=== PATIENT | male | born 1975 | race Caucasian/White ===

== ENCOUNTER → 2021-12-29 | Outpatient (CLI) | payer OTHER ==
--- NOTE | 2021-12-29 19:01 | MR ---
EXAMINATION TYPE: MR ankle RT wo con DATE OF EXAM: 12/29/2021 COMPARISON: None HISTORY: Rt ankle pain, injury, rupture of flexor Multiplanar multiecho imaging of the right ankle without contrast. Achilles tendon is intact. Plantar fascia is intact. The medial and lateral flexor tendons at the ank le appear intact. There is some subcutaneous edema in the lateral aspect of the midfoot. No evidence of fracture of the hindfoot. There is some fluid signal vertically oriented in the distal tibia on th e medial malleolus that could relate to an old injury. The collateral ligaments appear intact. There is mild edema over the medial malleolus of the ankle. IMPRESSION: There is soft tissue edema over the medial malleolus and also over the lateral mid foot. Nodular incr eased fluid signal in the medial malleolus of the distal tibia that could relate to an old injury. Th is could be old hairline fracture of the medial malleolus. No definite fracture line seen.
== END | disposition home or self-care (01) ==
LOC: RADMRIMAIN 15:01
PROVIDERS: ATTEND Podiatrist
DX: M66.371 Spontaneous rupture of flexor tendons, right ankle and foot (principal); M25.571 Pain in right ankle and joints of right foot

== ENCOUNTER 2023-04-11 08:39 | Day surgery (SDC) | payer OTHER ==
[2023-04-09 12:23] VITALS: BMI 31.5
[~2023-04-11 08:39] MED LIST: LIDOCAINE 1% (10MG/ML) FOR IV START INTRADERMA PRN
[2023-04-11] MEDS: LACTATED RINGERS 1,000 ML IV SCH ×2 (09:09→09:10)
[2023-04-11 09:13] VITALS: TEMP 97.1
[2023-04-11] MEDS ORDERED: LIDOCAINE 1% INJ 10MG/ML (20 ML MDV) ONE (09:17)
[2023-04-11] MEDS ORDERED: PROPOFOL 10 MG/ML 20 ML VIAL IV ONE (09:17)
--- NOTE | 2023-04-11 09:33 | P.PCN ---
Date of Procedure: 04/11/23 Procedure(s) Performed: BRIEF HISTORY: Patient is a 47-year-old pleasant male scheduled for an elective colonoscopy as a part of a for colon cancer/family history of colon cancer. He Was diagnosed with colon cancer at age 58. PROCEDURE PERFORMED: Colonoscopy. PREOPERATIVE DIAGNOSIS: Screening for colon cancer and family history of colon cancer. IV sedation per Anesthesia. PROCEDURE: After informed consent was obtained, the patient, was brought into the endoscopy unit. IV sedation was administered by Anesthesia under continuous monitoring. Digital rectal examination was normal. Initially the Olympus CF-160 flexible video colonoscope was then inserted in the rectum, gradually advanced into the cecum without any difficulty. Careful examination was performed as the scope was gradually being withdrawn. Ileocecal valve and the appendiceal orifice were visualized and appeared normal. Prep was excellent. Mucosa of the cecum, ascending colon, transverse colon, descending colon, sigmoid colon, and rectum appeared normal. Retroflexion was performed in the rectum and no lesions were seen. The patient tolerated the procedure well. IMPRESSION: Normal-appearing colon from rectum to cecum with no evidence of colorectal neoplasia. RECOMMENDATIONS: Findings of this examination were discussed with the patient as well as his family. He was advised to have a repeat screening colonoscopy in 5 years because of the family history of colon cancer.
[2023-04-11 09:43] VITALS: RESP 16
[2023-04-11 10:12] VITALS: BP 139/93; PULSE 62
== END 2023-04-11 10:07 | disposition home or self-care (01) ==
LOC: ORWHC2ENDO 08:39
PROVIDERS: ATTEND Internal Medicine Gastroenterology
DX: Z12.11 Encounter for screening for malignant neoplasm of colon (principal); I10 Essential (primary) hypertension; E78.5 Hyperlipidemia, unspecified; F90.9 Attention-deficit hyperactivity disorder, unspecified type; Z87.891 Personal history of nicotine dependence; Z79.899 Other long term (current) drug therapy; Z80.0 Family history of malignant neoplasm of digestive organs
CPT/HCPCS: 45378; J2001; J2704

== ENCOUNTER → 2023-07-07 | Outpatient (CLI) | payer OTHER ==
[2023-07-07 10:43] LABS: ALT 85 U/L (10-49); AST 49 U/L (14-35); Albumin 4.7 g/dL (3.8-4.9); Albumin/Globulin Ratio 1.96 Ratio (1.60-3.17); Alkaline Phosphatase 62 U/L (41-126); BUN/Creat Ratio 12.75 Ratio (12.00-20.00); Blood Urea Nitrogen 10.2 mg/dL (9.0-27.0); Calcium 9.8 mg/dL (8.7-10.3); Carbon Dioxide 26.7 mmol/L (21.6-31.8); Chloride 103 mmol/L (96-109); Chol/HDL Ratio 4.93 Ratio; Globulin 2.4 g/dL (1.6-3.3); Glucose 105 mg/dL (70-110); HCT 44.7 % (39.6-50.0); HGB 15.6 g/dL (13.0-17.0); LDL Cholesterol,Calculated 69.5 mg/dL (0.0-131.0); MCH 30.8 pg (27.0-32.0); MCHC 34.9 g/dL (32.0-37.0); MCV 88.3 FL (80.0-97.0); Mean Platelet Volume 10.9 FL (9.5-12.2); NRBC Per 100 WBC 0 X 10*3/uL (0.00-0.01); Platelet Count 231 X 10*3/uL (140-440); Potassium 4.5 mmol/L (3.5-5.5); Prostate Specific Antigen 0.86 ng/mL (0.000-2.500); RBC 5.06 X 10*6/uL (4.40-5.60); RDW 12.1 % (11.5-14.5); Sodium 141 mmol/L (135-145); Total Bilirubin 0.6 mg/dL (0.3-1.2); Total Protein 7.1 g/dL (6.2-8.2); WBC 6.61 X 10*3/uL (4.50-10.00)
== END | disposition home or self-care (01) ==
LOC: LABWHC1 07:55
PROVIDERS: ATTEND Family Medicine
DX: Z00.01 Encounter for general adult medical examination with abnormal findings (principal)
CPT/HCPCS: 36415; 80053; 80061; 84153; 85027

== ENCOUNTER → 2024-09-30 | Outpatient (CLI) | payer OTHER ==
[2024-09-30 10:39] LABS: ALT 63 U/L (10-49); AST 40 U/L (14-35); Albumin 4.5 g/dL (3.8-4.9); Albumin/Globulin Ratio 1.73 Ratio (1.60-3.17); Alkaline Phosphatase 69 U/L (41-126); Anion Gap 12.20 mmol/L (4.00-12.00); BUN/Creat Ratio 13.25 Ratio (12.00-20.00); Blood Urea Nitrogen 10.6 mg/dL (9.0-27.0); Calcium 9.4 mg/dL (8.7-10.3); Carbon Dioxide 23.8 mmol/L (21.6-31.8); Chloride 104 mmol/L (96-109); Cholesterol 165.00 mg/dL (0.00-200.00); Globulin 2.6 g/dL (1.6-3.3); Glucose 109 mg/dL (70-110); HDL Cholesterol 32.40 mg/dL (40.00-60.00); LDL Cholesterol,Calculated 75.2 mg/dL (0.0-131.0); Potassium 4.3 mmol/L (3.5-5.5); Prostate Specific Antigen 0.89 ng/mL (0.000-3.500); Sodium 140 mmol/L (135-145); Total Protein 7.1 g/dL (6.2-8.2); Triglycerides 287.00 mg/dL (0.00-149.00); VLDL Calculation 57.40 mg/dL (5.00-40.00)
[2024-09-30 10:59] LABS: HCT 44.3 % (39.6-50.0); HGB 15.1 g/dL (13.0-17.0); MCH 29.5 pg (27.0-32.0); MCHC 34.1 g/dL (32.0-37.0); MCV 86.5 FL (80.0-97.0); NRBC Per 100 WBC 0 X 10*3/uL (0.00-0.01); Platelet Count 239 X 10*3/uL (140-440); RBC 5.12 X 10*6/uL (4.40-5.60); RDW 11.9 % (11.5-14.5); WBC 7.52 X 10*3/uL (4.50-10.00)
== END | disposition home or self-care (01) ==
LOC: LABWHC1 07:34
PROVIDERS: ATTEND Family Medicine
DX: Z00.01 Encounter for general adult medical examination with abnormal findings (principal)
CPT/HCPCS: 36415; 80053; 80061; 84153; 85027